=== PATIENT | female | born 1955 | race Caucasian/White ===

== ENCOUNTER 2024-01-29 16:23 | Inpatient (IN) ==
[2024-01-29] MEDS ORDERED: 0.2 MICRON FILTER SET 1 EACH IV ONE ×3 (16:35→17:49)
[2024-01-29] MEDS: AMIODARONE / D5W 150 MG/100 ML BAG IV STA ×2 (16:40→18:12)
--- NOTE | 2024-01-29 16:41 | Emergency Department Note ---
Impression & Plan Atrial flutter with rapid ventricular response, Near syncope ED Provider Note HISTORY OF PRESENT ILLNESS: Patient is a 66-year-old female presenting with a near syncopal episode. Patient is from [place] and currently in town visiting her grandson who just graduated from [employer]. She reports that she was walking up a slight hill when she felt very lightheaded like she was going to pass out. Family was able to assist her to the seat. She did not lose consciousness or hit her head. Family called 911. Patient denies any chest pain with the episode. She was found to be hypotensive and tachycardic with EMS. Blood pressures were in the low 90s systolic and heart rate was in the 130s. Her initial telemetry for EMS looked like SVT, but she did slow down to show evidence of atrial flutter. Arrival to the ER, the patient is denying any chest pain. She denies any sensation of palpitations or shortness of breath. She reports feeling back to her baseline. Denies any DVT or PE history. She is not on any anticoagulation. She only has a history of hypertension and takes a blood pressure medication. Denies any history of atrial fibrillation or flutter. ROS: as above PHYSICAL EXAM: Constitutional: Patient appears in no acute distress. HENT: Head: Normocephalic and atraumatic. Eyes: EOMI, PERRL Mouth/Throat: Mucous membranes moist. Neck: Trachea midline. Neck supple. Cardiovascular: Tachycardic with irregularly irregular rhythm. No murmurs, rubs or gallops. Intact distal pulses. Pulmonary/Chest: No respiratory distress. Breath sounds clear and equal bilaterally. No wheezes or rales. Abdominal: Abdomen soft, no tenderness, rebound or guarding. Musculoskeletal: No edema, tenderness or deformity noted. Skin: Warm and dry. No rash, erythema, pallor or cyanosis Psychiatric: Appropriate mood and affect for situation. Neurological: Alert and keenly responsive. CN II-XII grossly intact, moving all extremities equally and fully. MDM: - Vitals signs showed tachycardia. - History obtained via patient. Patient presents with near syncopal episode. Patient is in town visiting her grandson graduation. Reports she was walking up a slight hill when she felt lightheaded like she was going to pass out. Family was able to assist her to a seat and she did not fully pass out. On EMS arrival, patient was slightly hypotensive and tachycardic. On arrival to the ER, patient is denying any symptoms. Reports she feels back to her normal self. Denies any chest pain or shortness of breath. She is not on any anticoagulation. Denies any history of atrial fibrillation or atrial flutter. - Chronic conditions affecting care: Hypertension - Differential diagnoses include, but are not limited to: Electrolyte abnormality; dysrhythmia; pulmonary embolism; ACS; pneumonia; dehydration - Order placed for continuous cardiac monitoring. At this time, monitor showed rate of 134 bpm with irregular rhythm, per my interpretation. - External medical records reviewed. EMS sheet was reviewed. Patient was slightly hypotensive with a systolic blood pressure in the 90s. - EKG interpreted by myself showed atrial flutter. Rate 133 bpm. QT 294. No acute ischemic changes. - Laboratory workup interpreted by myself showed normal WBC; stable electrolytes; elevated BNP (410); normal troponin; elevated TSH (5.543) - Though patient's magnesium and potassium are normal, will replete with 1g IV magnesium and 10 mEq IV potassium - Patient given 150 mg IV bolus of amiodarone. Heart rate still remained elevated and she was started on an amiodarone drip. She was also given an additional 150 mg IV bolus of amiodarone. Given 1L NS. - Unfortunately, heart rate is still not well-controlled. Will admit to the hospitalist service. She will need anticoagulation and potentially cardioversion with cardiology in the morning. She is not cardioverted in the emergency department as unclear when her abnormal rhythm started. She is also asymptomatic with a heart rate in the 130s. - Discussion was had with director of casework services about patient's case and need for admission - Hospitalist consulted for admission - Patient admitted to [facility] hospitalist service for further evaluation and management. I have personally spent 32 minutes of critical care time in the direct management of this patient. This includes bedside care, interpretation of diagnostic studies, and testing, discussion with consultants, patient, and family members, and other required patient management activities. This 32 minutes is in excess of all separately billable procedures. ASSESSMENT AND PLAN: Diagnosis: Atrial flutter with rapid ventricular response; near syncope Plan: admit Past Med/Surg History Social History Smoking Status: Never smoker Preferred Language: Bengali Feels Safe at Home: Yes Allergies Allergies Allergy/AdvReac Type Severity Reaction Status Date / Time No Known Allergies Allergy Unverified 01/29/24 18:05 Home Meds Home Medications Medication Instructions Recorded Confirmed lisinopril 1 tab PO QAM 01/29/24 01/29/24 Results & Data (ED) Vital Signs Vital Signs - 24 hr 01/29/24 16:29 01/29/24 16:29 01/29/24 16:29 Temperature Temperature Source Pulse Rate 114 H Pulse Rate [Apical] 121 H Pulse Rhythm Irregular Pulse Rhythm [Apical] Irregular Pulse Strength [Apical] Normal Respiratory Rate 21 20 Respiratory Effort / Characteristics Non-Labored Spontaneous Respiratory Depth Normal Respiratory Pattern Regular Blood Pressure Blood Pressure [Right Arm] 96/74 L Blood Pressure Mean Blood Pressure Mean [Right Arm] 81 Blood Pressure Position Blood Pressure Position [Right Arm] Pulse Oximetry 94 94 92 Oxygen Delivery Method Room Air Room Air Room Air Oxygen Flow Rate 0 Sepsis Recent Fever Within 48 Hours Sepsis New/Unexplained Change in Mental Status Sepsis Action Taken by Nursing 01/29/24 16:30 01/29/24 16:34 01/29/24 17:08 Temperature 36.7 C Temperature Source Oral Pulse Rate 135 H 134 H Pulse Rate [Apical] 114 H Pulse Rhythm Irregular Pulse Rhythm [Apical] Irregular Pulse Strength [Apical] Normal Respiratory Rate 22 20 Respiratory Effort / Characteristics Non-Labored Spontaneous Non-Labored Spontaneous Respiratory Depth Normal Normal Respiratory Pattern Regular Regular Blood Pressure 107/89 Blood Pressure [Right Arm] 101/84 Blood Pressure Mean 95 Blood Pressure Mean [Right Arm] 89 Blood Pressure Position Lying Blood Pressure Position [Right Arm] Lying Pulse Oximetry 94 94 Oxygen Delivery Method Room Air Room Air Oxygen Flow Rate Sepsis Recent Fever Within 48 Hours No Sepsis New/Unexplained Change in Mental Status No Sepsis Action Taken by Nursing Physician Notified 01/29/24 17:30 01/29/24 17:45 01/29/24 18:00 Temperature Temperature Source Pulse Rate Pulse Rate [Apical] 112 H 139 H 128 H Pulse Rhythm Pulse Rhythm [Apical] Irregular Irregular Irregular Pulse Strength [Apical] Normal Normal Normal Respiratory Rate 21 20 23 Respiratory Effort / Characteristics Non-Labored Spontaneous Non-Labored Spontaneous Non-Labored Spontaneous Respiratory Depth Normal Normal Normal Respiratory Pattern Regular Regular Regular Blood Pressure Blood Pressure [Right Arm] 109/86 121/99 111/78 Blood Pressure Mean Blood Pressure Mean [Right Arm] 93 106 89 Blood Pressure Position Blood Pressure Position [Right Arm] Lying Lying Pulse Oximetry 95 95 95 Oxygen Delivery Method Room Air Room Air Room Air Oxygen Flow Rate Sepsis Recent Fever Within 48 Hours Sepsis New/Unexplained Change in Mental Status Sepsis Action Taken by Nursing 01/29/24 18:15 Temperature Temperature Source Pulse Rate Pulse Rate [Apical] 126 H Pulse Rhythm Pulse Rhythm [Apical] Irregular Pulse Strength [Apical] Normal Respiratory Rate 20 Respiratory Effort / Characteristics Non-Labored Spontaneous Respiratory Depth Normal Respiratory Pattern Regular Blood Pressure Blood Pressure [Right Arm] 105/82 Blood Pressure Mean Blood Pressure Mean [Right Arm] 89 Blood Pressure Position Blood Pressure Position [Right Arm] Lying Pulse Oximetry 97 Oxygen Delivery Method Room Air Oxygen Flow Rate Sepsis Recent Fever Within 48 Hours Sepsis New/Unexplained Change in Mental Status Sepsis Action Taken by Nursing Laboratory Data 01/29/24 16:37 01/29/24 16:37 Lab Results 01/29/24 01/29/24 Range/Units 16:37 17:15 WBC 10.09 (4.8-10.8) K/ul RBC 5.18 (4.20-5.40) M/uL Hgb 14.3 (12.0-16.0) g/dl Hct 44.7 (37.0-47.0) % MCV 86.3 (80.0-100.0) fL MCH 27.6 (25.0-34.0) pg MCHC 32.0 (32.0-36.0) g/dL RDW Std Deviation 46.5 H (36.4-46.3) fL RDW Coeff of Roman 14.6 H (11.5-14.5) % Plt Count 332 (130-400) K/uL MPV 9.5 (9.4-12.4) fL Immature Gran % (Auto) 0.3 % Neut % (Auto) 43.7 % Lymph % (Auto) 47.2 % Winston % (Auto) 6.7 % Eos % (Auto) 1.3 % Baso % (Auto) 0.8 % Neut # (Auto) 4.41 (1.40-6.50) K/uL Lymph # (Auto) 4.76 H (1.20-3.40) K/uL Winston # (Auto) 0.68 H (0.11-0.59) K/uL Eos # (Auto) 0.13 (0.00-0.50) K/uL Baso # (Auto) 0.08 (0.00-0.20) K/uL Immature Gran # (Auto) 0.03 (0.01-0.20) K/uL PT 11.4 (9.0-12.0) Seconds INR 1.0 (0.9-1.1) Sodium 138 (136-145) mmol/L Potassium 3.8 (3.5-5.1) mmol/L Chloride 107 (98-107) mmol/L Carbon Dioxide 25 (21-32) mmol/L Anion Gap 6 (3-11) BUN 20 (6-23) mg/dl Creatinine 0.88 (0.6-1.2) mg/dl Est Cr Clr Drug Dosing 64.7 ml/min Est GFR ( Amer) 77.7 ml/min Est GFR (Non-Af Amer) 67.0 ml/min BUN/Creatinine Ratio 22.7 H (10-20) Glucose 101 H (70-99(Fasting)) mg/dl Calcium 8.6 (8.6-10.3) mg/dl Magnesium 1.9 (1.7-2.4) mg/dl Total Bilirubin 0.5 (0.2-1.0) mg/dl AST 13 (13-39) U/L ALT 8 (7-52) U/L Alkaline Phosphatase 53 (34-104) U/L Troponin I High Sens 8.8 (0-14) pg/ml B-Natriuretic Peptide 410 H (0-100) pg/ml Total Protein 7.1 (6.0-8.3) gm/dl Albumin 3.9 (3.4-5.0) gm/dl Globulin 3.2 (2.5-4.0) gm/dl Albumin/Globulin Ratio 1.2 (0.9-2) TSH 5.543 H (0.300-4.500) uIu/ml Free T4 0.95 (0.61-1.60) ng/dl Administered Medications Amiodarone HCl/Dextrose (Nexterone / D5w) 360 mg in 200 mls @ 33.333 mls/hr IV .Q6H FELECIA Stop: 01/29/24 23:14 Last Admin: 01/29/24 17:16 Dose: 1 mg/min, 33.3 mls/hr Documented By: BRIAN Co-signed By: MARGARITA Magnesium Sulfate/Dextrose (Magnesium Sulfate / D5w) 1 gm in 100 mls @ 100 mls/hr IV NOW STA Stop: 01/29/24 18:50 Last Admin: 01/29/24 18:03 Dose: 100 mls/hr Documented By: BRIAN Potassium Chloride (K Jaiden / Wtr) 10 meq in 100 mls @ 100 mls/hr IV ONE ONE Stop: 01/29/24 18:50 Last Admin: 01/29/24 18:03 Dose: 100 mls/hr Documented By: BRIAN Discontinued Medications Amiodarone HCl/Dextrose (Nexterone / D5w) 150 mg in 100 mls @ 600 mls/hr IV NOW STA Stop: 01/29/24 16:44 Last Infusion: 01/29/24 16:51 Dose: Infused Documented By: BRIAN Co-signed By: CAROLE Admin: 01/29/24 16:40 Dose: 600 mls/hr Documented By: BRIAN Co-signed By: CAROLE Sodium Chloride (Nss) 1,000 mls @ 999 mls/hr IV .Q1H1M ONE Stop: 01/29/24 17:43 Last Infusion: 01/29/24 17:53 Dose: Infused Documented By: Admin: 01/29/24 16:52 Dose: 999 mls/hr Documented By: BRIAN Amiodarone HCl/Dextrose (Nexterone / D5w) 360 mg in 200 mls @ 16.667 mls/hr IV .Q12H FELECIA Stop: 02/28/24 16:59 Last Admin: 01/29/24 17:17 Dose: Not Given Documented By: BRIAN Amiodarone HCl/Dextrose (Nexterone / D5w) 150 mg in 100 mls @ 600 mls/hr IV NOW STA Stop: 01/29/24 17:58 Last Infusion: 01/29/24 18:23 Dose: Infused Documented By: BRIAN Co-signed By: MARGARITA Admin: 01/29/24 18:12 Dose: 600 mls/hr Documented By: BRIAN Co-signed By: MARGARITA Imaging Data Radiologist's Impression: Chest X-Ray 01/29/24 16:28 XR chest 1V portable HISTORY: 68 years-old Female syncope acute chest trauma with syncope COMPARISON: None TECHNIQUE: AP view of the chest FINDINGS: Heart is mildly enlarged. Pulmonary vascular congestion. No pneumothorax, pleural effusion or airspace consolidation. Bones appear grossly intact. IMPRESSION: Cardiomegaly with pulmonary vascular congestion. ACT 112: Negative or not required by law. The above report was generated using voice recognition software. It may contain grammatical, syntax or spelling errors. Electronically signed by: Savage Oswald M.D. 01/29/2024 4:48 PM Discharge Plan Visit Data Chief Complaint: Syncope Stated Complaint: SYNCOPE, TACHYCARDIA ED Provider: Charlotte Maxwell Discharge Problem: Atrial flutter with rapid ventricular response, Near syncope Forms Stand Alone Forms: SOLEM [employer] Prescriptions Prescriptions: No Action lisinopril 1 tab PO QAM Rx Instructions: PT DOESNT KNOW STRENGTH..GETS MEDICATION IN [place] Referrals Referrals: PCP,NO [Primary Care Provider] -
[2024-01-29 16:42] LABS: Basophils # (auto) 0.08 K/uL (0.00-0.20); Basophils % (auto) 0.8 %; Eosinophils # (auto) 0.13 K/uL (0.00-0.50); Eosinophils % (auto) 1.3 %; Hematocrit (blood only) 44.7 % (37.0-47.0); Hemoglobin 14.3 g/dl (12.0-16.0); Immature Granulocytes # (auto) 0.03 K/uL (0.01-0.20); Immature Granulocytes % (auto) 0.3 %; Lymphocytes # (auto) 4.76 K/uL (1.20-3.40); Lymphocytes % (auto) 47.2 %; Mean Corpuscular Hemoglobin 27.6 pg (25.0-34.0); Mean Corpuscular Volume 86.3 fL (80.0-100.0); Mean Platelet Volume 9.5 fL (9.4-12.4); Monocytes # (auto) 0.68 K/uL (0.11-0.59); Monocytes % (auto) 6.7 %; Neutrophils # (auto) 4.41 K/uL (1.40-6.50); Neutrophils % (auto) 43.7 %; Platelet Count 332 K/uL (130-400); RDW Coefficient of Variation 14.6 % (11.5-14.5); RDW Standard Deviation 46.5 fL (36.4-46.3); Red Blood Count 5.18 M/uL (4.20-5.40); White Blood Count 10.09 K/ul (4.8-10.8)
--- NOTE | 2024-01-29 16:50 | XRay Report ---
XR chest 1V portable HISTORY: 68 years-old Female syncope acute chest trauma with syncope COMPARISON: None TECHNIQUE: AP view of the chest FINDINGS: Heart is mildly enlarged. Pulmonary vascular congestion. No pneumothorax, pleural effusion or airspac e consolidation. Bones appear grossly intact. IMPRESSION: Cardiomegaly with pulmonary vascular congestion. ACT 112: Negative or not required by law. The above report was generated using voice recognition software. It may contain grammatical, syntax o r spelling errors. Electronically signed by: Savage Oswald M.D. 01/29/2024 4:48 PM
[2024-01-29 16:51] LABS: Prothrombin Time 11.4 Seconds (9.0-12.0)
[2024-01-29] MEDS: SODIUM CHLORIDE 0.9% 1,000 ML IV ONE (16:52)
[2024-01-29 16:56] LABS: Albumin Level 3.9 gm/dl (3.4-5.0); Bilirubin,Total 0.5 mg/dl (0.2-1.0); Calcium 8.6 mg/dl (8.6-10.3); Magnesium 1.9 mg/dl (1.7-2.4); Potassium 3.8 mmol/L (3.5-5.1)
[2024-01-29 17:01] LABS: Albumin Globulin Ratio 1.2 (0.9-2); BUN Creatinine Ratio 22.7 (10-20); Creatinine Clr Calc Pharmacy 64.7 ml/min; Est GFR (African American) 77.7 ml/min; Globulin 3.2 gm/dl (2.5-4.0); Total Protein 7.1 gm/dl (6.0-8.3)
[2024-01-29] MEDS: AMIODARONE / D5W 360 MG/200 ML BAG IV SCH ×3 (17:05→22:25)
[2024-01-29 17:08] LABS: Troponin I High Sensitivity 8.8 pg/ml (0-14)
[2024-01-29 17:17] LABS: Thyroid Stimulating Hormone 5.543 uIu/ml (0.300-4.500)
[2024-01-29 17:49] LABS: T4 Free Thyroxine 0.95 ng/dl (0.61-1.60)
[2024-01-29] MEDS: MAGNESIUM SULFATE / D5W 1 GM/100 ML BAG IV STA (18:03)
[2024-01-29] MEDS: POTASSIUM CHLORIDE / WTR 10 MEQ/100 ML PLCT IV ONE (18:03)
--- NOTE | 2024-01-29 18:56 | History & Physical Report ---
Date of Service January 29, 2024 Assessment & Plan (1) Near syncope: (2) Atrial flutter with rapid ventricular response: Plan: This is a 68-year-old female visiting from [place] with past medical history of hypertension who presents after near syncopal episode earlier this afternoon was found to have new onset A-fib with RVR. Episode of lightheadedness, diaphoresis, SOB this afternoon, no previous history of known arrhythmias EKG with atrial flutter with RVR with HR in 130s Received 150mg IV bolus of amiodarone x2 in the ED and was started on an amiodarone drip of 1 mg/min for the past hour with heart rate remaining in the 130s Discussed case with Dr. Argueta, who recommends continuing amiodarone drip, adding d-dimer due to recent flight for PE eval Anticoagulating with IV heparin CM consult to assess with Cici monzon given patient is traveling i nternationally Mag and K repleted in ED, will recheck in AM, TSH slightly elevated at 5 but free T4 wnl NPO @ MN in case of cardioversion in AM (3) HTN (hypertension): Plan: Hold lisinopril for now while BP lower end of normal DVT Ppx: IV heparin as above Code status: FULL PCP: Visiting from [place] Dispo: Admitted to PCU Patient seen in collaboration with Dr. Bryson. Please see addendum. I spent a total of 75 minutes coordinating, documenting, and providing care for this patient excluding time spent in the performance of separately billed services. History of Present Illness Chief Complaint: Near syncope Primary Care Provider: NO PCP This is a 68-year-old female visiting from [place] with past medical history of hypertension who presents after near syncopal episode earlier this afternoon. Patient is here visiting her grandson during his [employer] graduation. They were walking to lunch when she started to feel lightheaded with associated shortness of breath and diaphoresis but was able to sit down at the [place] without passing out. Family called EMS and was found to be hypotensive with systolic BP in the 90s with heart rate in the 130s. EKG on arrival consistent with atrial flutter with RVR in the 130s. Received 150mg IV bolus of amiodarone x2 in the ED and has been on an amiodarone drip of 1 mg/min for the past hour with heart rate antonia ining in the 130s. Currently feels fatigued but denies any lightheadedness, headache, chest pain or palpitations. No nausea, vomiting, abdominal pain, dysuria, diarrhea or constipation. Denies any history of known heart arrhythmias, AR or PE. Allergies Allergy/AdvReac Type Severity Reaction Status Date / Time No Known Allergies Allergy Unverified 01/29/24 18:05 Home Medications Medication Instructions Recorded Confirmed Type lisinopril 1 tab PO QAM 01/29/24 01/29/24 History Past Med/Surg History Medical History (Updated 01/29/24 @ 18:51 by Ny Parnell PA-C) HTN (hypertension) Surgical History (Updated 01/29/24 @ 18:51 by Ny Parnell PA-C) No pertinent past surgical history Family History (Updated 01/29/24 @ 18:51 by Ny Parnell PA-C) Denies family history of Diabetes Heart disease Stroke Social History Smoking Status: Never smoker Second Hand Exposure: No; Do You Dip or Chew Tobacco: No; Tobacco Cessation Education Requested by Patient: No Hx Alcohol Use: No Hx Substance Use: No Preferred Language: Dominican Communication Ability: Effective Senior Client Advisor Required: No Beliefs That Will Affect Care: None Current Living Situation: Spouse Other Information That Helps Us Care for You: No Feels Safe at Home: Yes Safety Concerns: Feels Safe At This Time Assistive Devices: Denture - Upper Review of Systems Review of Systems: At least ten systems reviewed and negative except as noted in the HPI. Physical Exam Physical Exam: General Appearance: WD/WN, vitals as above, NAD, sitting up in bed, pleasant, conversing easily Head: normocephalic, atraumatic Eyes: normal inspection, PERRL, conjunctivae normal, anicteric sclerae ENT: external ear and nose normal, oropharynx normal Neck: normal visual inspection, trachea midline, no thyromegaly Respiratory: normal respiratory effort, diminished breath sounds bilaterally, no wheeze, rales, rhonchi. No accessory muscle use Cardiovascular: tachycardic rate regular rhythm, no murmur, normal peripheral pulses, no BLE edema. Vessels: no JVD Chest: normal inspection of chest Abdomen/GI: normal bowel sounds, soft, nontender, no hepatosplenomegaly Extremities/Musculoskeletal: no cyanosis or clubbing, extremities motor strength 5/5 Neurologic: PERRL, EOMI, accommodation nl, no face palsy, no dysarthria, CN's II-XI intact bilaterally and moves all extremities Psychiatric: A+Ox3, euthymic affect Skin: no rashes, normal color, warm/dry Results & Data Results & Data Vital Signs (Past 12 Hours) Vital Signs Temp Pulse Pulse Resp BP BP Pulse Ox 01/29/24 18:15 131 H 21 108/89 94 01/29/24 18:15 126 H 20 105/82 97 01/29/24 18:00 128 H 23 111/78 95 01/29/24 17:45 139 H 20 121/99 95 01/29/24 17:30 112 H 21 109/86 95 01/29/24 17:08 114 H 20 101/84 94 01/29/24 16:34 36.7 C 134 H 22 107/89 94 01/29/24 16:30 135 H 01/29/24 16:29 121 H 20 96/74 L 92 01/29/24 16:29 114 H 21 94 01/29/24 16:29 94 O2 Del Method O2 Flow Rate 01/29/24 18:15 Room Air 01/29/24 18:15 Room Air 01/29/24 18:00 Room Air 01/29/24 17:45 Room Air 01/29/24 17:30 Room Air 01/29/24 17:08 Room Air 01/29/24 16:34 Room Air 01/29/24 16:30 01/29/24 16:29 Room Air 01/29/24 16:29 Room Air 01/29/24 16:29 Room Air 0 Laboratory Results Short CBC 01/29/24 Range/Units 16:37 WBC 10.09 (4.8-10.8) K/ul Hgb 14.3 (12.0-16.0) g/dl Hct 44.7 (37.0-47.0) % Plt Count 332 (130-400) K/uL BMP 01/29/24 16:37 Sodium 138 Potassium 3.8 Chloride 107 Carbon Dioxide 25 BUN 20 Creatinine 0.88 Glucose 101 H Calcium 8.6 Liver Function 01/29/24 Range/Units 16:37 Total Bilirubin 0.5 (0.2-1.0) mg/dl AST 13 (13-39) U/L ALT 8 (7-52) U/L Alkaline Phosphatase 53 (34-104) U/L Albumin 3.9 (3.4-5.0) gm/dl Diagnostic Findings Chest X-Ray 01/29/24 16:28 XR chest 1V portable HISTORY: 68 years-old Female syncope acute chest trauma with syncope COMPARISON: None TECHNIQUE: AP view of the chest FINDINGS: Heart is mildly enlarged. Pulmonary vascular congestion. No pneumothorax, pleural effusion or airspace consolidation. Bones appear grossly intact. IMPRESSION: Cardiomegaly with pulmonary vascular congestion. ACT 112: Negative or not required by law. The above report was generated using voice recognition software. It may contain grammatical, syntax or spelling errors. Electronically signed by: Savage Oswald M.D. 01/29/2024 4:48 PM ECG Additional Comments: EKG reviewed with a flutter with RVR rate in 130s Code Status & VTE Plan VTE Prophylaxis Plan VTE Prophylaxis will be ordered: Yes Supervising Physician Co-Signing Physician Notes Pt seen and examined by myself, Irene Bryson MD on the day of service. Care was coordinated with Ny Parnell PA-C. 68yoF with PMHx significant for HTN presenting with near syncopal episode and dyspnea on exertion. Hx obtained from pt and daughter in the room. Pt states that she is visiting from [place]. Has no cardiac Hx, has never had anything like this happen before. Notes a dx of only HTN. At the time of exam, denied current symptoms of chest pain, palpitations, BELLA, N/V. Rhythm of atrial flutter with RVR hs-trop wnl BNP elevated at 410 Chest XRAY with noted cardiomegaly with pulmonary vascular congestion d-dimer elevated, CTA chest ordered hypotensive on presentation to the ED, HR as high as the 130s. On exam, AAOx3, no acute distress laying in bed. Irregular HR, breath sounds clear, no noted pedal edema. Started on amiodarone by the ED, IV heparin for anticoagulation, per risk consulting treasury director continue with IV amiodarone at this time. At time of signout to geriatric nurse practitioner, HR in one-teens. Echo pending. Consider trending trops x3 CTA chest pending NPO at midnight. Telemetry monitoring. UA suggestive of infection, urine Cx pending. IV Rocephin, tailor/discontinue based on Cx results. Otherwise as above. I spent a total [id number] coordinating, documenting, and providing care for this patient excluding time spent in the performance of separately billed services
[2024-01-29 19:22] LABS: Appearance Urine Cloudy (Clear); Bacteria Urine Automated 4+ (Negative); Bilirubin Urine Negative (Negative); Blood Urine Trace (Negative); Color Urine Yellow; Epithelial Cell Urine Auto >30 /lpf (0-5); Glucose Urine UA Negative (Negative); Ketones Urine Negative (Negative); Leukocyte Esterase Urine 3+ (Negative); Nitrite Urine Negative (Negative); Protein Urine Trace (Negative); RBC Urine Automated 0-4 /hpf (0-4); Specific Gravity Urine 1.015 (1.000-1.030); Urobilinogen Urine Negative (Negative); WBC Urine Automated >30 /hpf (0-5)
[2024-01-29] MEDS: HEPARIN SOD (PORCINE) 1000 UNIT/ML IV ONE (19:29)
[2024-01-29] MEDS: HEPARIN SODIUM/DEXTROSE 25,000 UNITS/500 ML BAG IV SCH (19:30)
[2024-01-29 19:32] LABS: Partial Thromboplastin Ratio 0.9; Partial Thromboplastin Time 25 Seconds (21-31)
[2024-01-29] MEDS: Heparin IV Adult Wt-Based Low-Dose w/ INITIAL Bolus Protocol IV STA (19:36)
[2024-01-29 19:38] LABS: D Dimer 1620 ug/L FEU (0-500)
[2024-01-29] MEDS ORDERED: ACETAMINOPHEN 325 MG TAB PO PRN (20:39)
[2024-01-29] MEDS ORDERED: POLYETHYLENE (MIRALAX) 17 GM PACK PO PRN (20:39)
[2024-01-29] MEDS ORDERED: ONDANSETRON INJ 2 MG/ML 2 ML VIAL IV PRN (20:39)
[2024-01-29] MEDS: OPTIRAY 320 125ml IV ONE (22:16)
--- NOTE | 2024-01-29 22:34 | CT Scan Report ---
Exam(s): CTA CHEST IV Amt: OPTIRAY [id number] EXAM: CT Angiography Chest With Intravenous Contrast CLINICAL HISTORY: Reason for exam: PE. TECHNIQUE: Axial computed tomographic angiography images of the chest with intravenous contrast. CTDI is 36.5 mGy and DLP is 846.38 mGy-cm. Automated exposure control was utilized for the study. A dose lowering technique was utilized adhering to the principles of ALARA. MIP reconstructed images were created and reviewed. COMPARISON: No relevant prior studies available. FINDINGS: Pulmonary arteries: Unremarkable. No acute pulmonary embolism. Aorta: No acute findings. No thoracic aortic aneurysm. Lungs: Unremarkable. No mass. No consolidation. Pleural space: Unremarkable. No significant effusion. No pneumothorax. Heart: Unremarkable. No cardiomegaly. No significant pericardial effusion. No evidence of RV dysfunction. Mediastinum: Moderate hiatal hernia. Bones/joints: No acute fracture. No dislocation. Soft tissues: Unremarkable. Lymph nodes: Unremarkable. No enlarged lymph nodes. IMPRESSION: 1. No acute pulmonary embolism. 2. Moderate hiatal hernia. Electronically signed by: Abe Mcnally MD 01/29/24 22:33 PM
[2024-01-30 02:04] LABS: Hematocrit (blood only) 41.6 % (37.0-47.0); Hemoglobin 13.8 g/dl (12.0-16.0); Mean Corpuscular Hemoglobin 27.8 pg (25.0-34.0); Mean Corpuscular Hgb Conc 33.2 g/dL (32.0-36.0); Mean Corpuscular Volume 83.7 fL (80.0-100.0); Mean Platelet Volume 9.6 fL (9.4-12.4); Platelet Count 324 K/uL (130-400); RDW Coefficient of Variation 14.9 % (11.5-14.5); Red Blood Count 4.97 M/uL (4.20-5.40); White Blood Count 8.82 K/ul (4.8-10.8)
[2024-01-30 02:15] LABS: BUN Creatinine Ratio 19.8 (10-20); Calcium 8.7 mg/dl (8.6-10.3); Creatinine Clr Calc Pharmacy 71.6 ml/min; Est GFR (African American) 85.9 ml/min; Est GFR (Non-African American) 74.1 ml/min; Magnesium 2.2 mg/dl (1.7-2.4)
[2024-01-30 02:23] LABS: ANTI-Xa, UFH(UnfractionatedHep 0.38 IU/ml (0.3-0.7)
[2024-01-30] MEDS: cefTRIAXone SODIUM 2,000 MG in DEXTROSE 5 % MINI-B 50 ML IV SCH (05:53)
--- NOTE | 2024-01-30 08:05 | Electrocardiogram Report ---
Test Reason : Blood Pressure : / mmHG Vent. 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
--- NOTE | 2024-01-30 08:20 | Electrocardiogram Report ---
Test Reason : Blood Pressure : / mmHG Vent. Rate : 133 BPM Atrial Rate : 300 BPM P-R Int : 000 ms QRS Dur : 068 ms QT Int : 294 ms P-R-T Axes : 000 -11 -83 degrees QTc Int : 437 ms Atrial flutter with variable A-V block Poor R wave progression, consider anterior UT vs. lead placement vs. LVH Abnormal ECG No previous ECGs available Confirmed by Vinay Hansen ([id number]) on 01/30/2024 8:19:49 AM Referred By: REFERRED SELF Confirmed By:Vinay Hansen
--- NOTE | 2024-01-30 08:35 | Cardiology Consultation ---
Date of Consultation January 30, 2024 Assessment & Plan (1) Atrial flutter with rapid ventricular response: (2) Heart failure with reduced ejection fraction: Plan Patient admitted with symptoms of SOB, diaphoresis, near syncope after walking up an incline. Diagnosed with atrial flutter RVR. Duration unknown, but possibly months as patient admits to worsening SOB for 5-6 months. LVEF found to be reduced at 20-25% with severe global hypokinesis, likely tachyinduced. HS troponin negative on admission. Started on IV heparin and IV amiodarone on admission. Add metoprolol succinate 25 mg daily. As BP allows, likely resume lisinopril, possibly lower dose. Currently patient appears euvolemic. No indication for diuretic therapy. Chest CTA was without evidence of PE. Lungs clear. Patient originally to fly back to [place] tomorrow. Recommend delaying flight at this time. Plan for probable HODAN/CV tomorrow Will need anticoagulation upon discharge as well. Patient will need close follow up upon returning to [place] and will likely need transitioned to GDMT that will be available to her. Case discussed with Dr. Raymundo Miller spent a total of 60 minutes on the date of service in preparation, delivery, and documentation of the care provided to this patient, excluding any time spent in the performance of separately billed services. Lima Marshall PA-C Department of Cardiology, [facility] This chart was completed in part utilizing Speech Voice Recognition Software. Grammatical errors, random word insertions, pronoun errors, and incomplete sentences are an occasional consequence of this system due to software limitations, ambient noise, and hardware issues. Any formal questions or concerns about the content, text, or information contained within the body of this dictation should be directly addressed to the provider for clarification. Supervising Physician Co-Signing Physician Notes Patient was seen and personally examined. Assessment and plan as outlined above. Agree with all recommendations. Patient is a 68-year-old female visiting from [place] with several days history of increased exertional dyspnea, near syncope after walking up incline. On ER presentation found to be in atrial flutter with rapid ventricular response. Begun on IV heparin and IV amiodarone with minimal change in heart rate Denies chest pain or anginal symptoms, recent fevers chills or infections. Notes no signs or symptoms of congestive heart failure weight gain or edema. Echocardiogram demonstrates diffuse hypokinesis question secondary to persistent tachyarrhythmia Exam: No jugular venous distention lungs clear cardiovascular exam irregular irregular with rapid response. No edema Impression: 1. Atrial flutter with rapid ventriclular response: Continue IV amiodarone, add metoprolol succinate dose today. Continue anticoagulation with IV heparin plan to transition to Eliquis Arrangements made tentatively for synchronized electrical cardioversion and HODAN guided in a.m. N.p.o. after mid night 2. 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 Fonseca History of Present Illness Patient is a 68 year old female who is visiting the area from [place], was admitted to [facility] yesterday after a near syncopal spell with SOB after walking up a hill. EMS was summoned and found to be tachycardic and hypotensive. EKG revealed atrial flutter with RVR. She was admitted to [facility]. Elevated D.Dimer noted. She underwent Chest CTA to rule out PE which was negative. HS troponin was negative x1. manager call center cardiology provider, Dr. Argueta, notified and recommended IV amiodarone load. She was started on anticoagulation with IV heparin. No prior cardiovascular history. She is treated for hypertension with possibly lisinopril (patient does not recall name of medication, but starts with "L" and is 10 mg). Due to being hypotensive on arrival, antihypertensives held on admission. Patient reports she is here for grandson's graduation from [employer]. She is to fly home tomorrow. She is here with 2 daughters, also from [place]. She reports worsening SOB with activities particularly over the last 5-6 months. No exertional chest pain. No sense of palpitations or tachypalpitations yesterday. SOB was acutely worse yesterday when trying to climb a slight incline. Today, patient resting at side of bed, eating breakfast. She reports feeling "well". She has no subjective complaints. SOB is at baseline. She denies orthopnea, PND or edema. No cough. BP improved. HR remains elevated in the 120- 130's. No history of Gl bleeding or anemia. Allergies Allergy/AdvReac Type Severity Reaction Status Date / Time No Known Allergies Allergy Unverified 01/29/24 18:05 Home Medications Medication Instructions Recorded Confirmed Type lisinopril 1 tab PO QAM 01/29/24 01/29/24 History Patient History Medical History (Updated 01/30/24 @ 11:00 by Lima Marshall PA-C) HTN (hypertension) Surgical History (Updated 01/29/24 @ 18:51 by Ny Parnell PA-C) No pertinent past surgical history Family History (Updated 01/29/24 @ 18:51 by Ny Parnell PA-C) Denies family history of Diabetes Heart disease Stroke Social History Smoking Status: Never smoker Second Hand Exposure: No; Do You Dip or Chew Tobacco: No; Tobacco Cessation Education Requested by Patient: No Hx Alcohol Use: No Hx Substance Use: No Preferred Language: Qatari Communication Ability: Effective Flight Control Specialist Required: No Beliefs That Will Affect Care: None Current Living Situation: Spouse Other Information That Helps Us Care for You: No Feels Safe at Home: Yes Safety Concerns: Feels Safe At This Time Assistive Devices: Denture - Upper Review of Systems Review of Systems: All systems reviewed & are unremarkable except as noted in HPI & below Physical Exam Constitutional: WD/WN, vitals as above well developed; no acute distress Neck: trachea midline, no thyromegaly Respiratory: normal respiratory effort; no labored breathing Auscultation: lungs clear to auscultation bilaterally; no crackles, no rales and no rhonchi Cardiovascular: Rate/Rhythm: + tachycardic Heart Sounds: no murmur Vessels: no JVD Extremities: no edema Musculoskeletal: no cyanosis or clubbing, extremities motor strength 5/5 Neurologic: PERRL, EOMI, accommodation nl, no face palsy, no dysarthria Results & Data Vital Signs (Past 12 Hours) Vital Signs Temp Pulse Pulse Resp BP Pulse Ox O2 Del Method 01/30/24 08:16 36.5 C 97 H 20 128/79 95 Room Air 01/30/24 03:04 36.5 C 102 H 16 131/88 94 Room Air 01/29/24 23:00 117 H 01/29/24 22:57 36.6 C 110 H 16 121/94 94 Room Air 01/29/24 22:00 131 H 01/29/24 21:09 92 H 01/29/24 21:03 36.5 C 133 H 17 120/78 95 Room Air 01/29/24 21:00 Room Air 01/29/24 20:50 132 H Laboratory Results Cardiac Enzymes 01/29/24 01/29/24 Range/Units 16:37 17:15 AST 13 (13-39) U/L Troponin I High Sens 8.8 (0-14) pg/ml B-Natriuretic Peptide 410 H (0-100) pg/ml Coagulation 01/29/24 01/29/24 Range/Units 16:37 17:15 PT 11.4 (9.0-12.0) Seconds APTT 25 (21-31) Seconds B-Natriuretic Peptide 410 H (0-100) pg/ml CBC 01/29/24 01/30/24 Range/Units 16:37 01:46 WBC 10.09 8.82 (4.8-10.8) K/ul RBC 5.18 4.97 (4.20-5.40) M/uL Hgb 14.3 13.8 (12.0-16.0) g/dl Hct 44.7 41.6 (37.0-47.0) % Plt Count 332 324 (130-400) K/uL Neut # (Auto) 4.41 (1.40-6.50) K/uL Lymph # (Auto) 4.76 H (1.20-3.40) K/uL Early # (Auto) 0.68 H (0.11-0.59) K/uL Eos # (Auto) 0.13 (0.00-0.50) K/uL Baso # (Auto) 0.08 (0.00-0.20) K/uL Comprehensive Metabolic Panel 01/29/24 01/30/24 Range/Units 16:37 01:46 Sodium 138 135 L (136-145) mmol/L Potassium 3.8 4.0 (3.5-5.1) mmol/L Chloride 107 107 (98-107) mmol/L Carbon Dioxide 25 22 (21-32) mmol/L BUN 20 16 (6-23) mg/dl Creatinine 0.88 0.81 (0.6-1.2) mg/dl Glucose 101 H 93 (70-99(Fasting)) mg/dl Calcium 8.6 8.7 (8.6-10.3) mg/dl AST 13 (13-39) U/L ALT 8 (7-52) U/L Alkaline Phosphatase 53 (34-104) U/L Total Protein 7.1 (6.0-8.3) gm/dl Albumin 3.9 (3.4-5.0) gm/dl Intake and Output 01/29/24 01/30/24 01/30/24 22:59 06:59 14:59 Intake Total 2049 Output Total 401 / 401 350 / 350 Balance 2049 / 1698 -351 / 1698 -350 / -350 Intake: IV 1999 Amiodarone / D5w 150 mg In 100 200 / 200 ml @ 600 mls/hr IV NOW STA Rx#: [id number] Amiodarone / D5w 360 mg In 200 200 / 200 ml @ 1 MG/MIN 33.333 mls/hr IV .Q6H [facility] Rx#:[id number] Magnesium Sulfate / D5w 1 gm In 100 / 100 100 ml @ 100 mls/hr IV NOW STA Rx#:[id number] Potassium Chloride / Wtr 10 meq 100 / 100 In 100 ml @ 100 mls/hr IV ONE ONE Rx#:[id number] Sodium Chloride 0.9% 1,000 ml @ 1000 / 1000 999 mls/hr IV .Q1H1M ONE Rx#: [id number] cefTRIAXone SODIUM 2,000 mg In 50 / 50 Dextrose 5 % Mini-B 50 ml @ 100 mls/hr IV Q24H [facility] Rx#: [id number] Left Antecubital 400 / 400 Oral 50 / 50 0 / 50 Output: Urine 400 / 400 350 / 350 # Bowel Movements / Other: # Unmeasured Voids 0 Weight 87.6 kg 87.4 kg Weight Measurement Method Standing Scale Built in [facility] Diagnostic Findings Telemetry reviewed: Atrial flutter with variable AV block. Ventricular rates ranging 120-130s. EKG reviewed from arrival 01/29/24: Atrial flutter with variable AV block, ventricular rates in the 130's poor R wave progression vs septal infarct. T wave inversions in inferior/lateral leads, but also may be flutter waves Repeat EKG reviewed from 01/30/24: Atrial flutter with RVR, ventricular rates in the 120's T wave abnormality in V5-V6. Echo reviewed, completed 01/30/24: LV is normal in size Severe global hypokinesis of the LV EF 20-25% LA is moderately dilated Trace MR Mild TR No pulm hypertension Chest CTA reviewed from 01/29/24: FINDINGS: Pulmonary arteries: Unremarkable. No acute pulmonary embolism. Aorta: No acute findings. No thoracic aortic aneurysm. Lungs: Unremarkable. No mass. No consolidation. Pleural space: Unremarkable. No significant effusion. No pneumothorax. Heart: Unremarkable. No cardiomegaly. No significant pericardial effusion. No evidence of RV dysfunction. Mediastinum: Moderate hiatal hernia. Bones/joints: No acute fracture. No dislocation. Soft tissues: Unremarkable. Lymph nodes: Unremarkable. No enlarged lymph nodes. IMPRESSION: 1. No acute pulmonary embolism. 2. Moderate hiatal hernia Chest xray report reviewed dated 01/30/24: IMPRESSION: Cardiomegaly with pulmonary vascular congestion. Medications Administered Current Inpatient Medications Acetaminophen (Acetaminophen 325 Mg Tab) 650 mg PO Q4H PRN PRN Reason: Pain or Fever Stop: 02/28/24 20:38 Amiodarone HCl/Dextrose (Nexterone / D5w) 360 mg in 200 mls @ 16.667 mls/hr IV .Q12H [facility] Stop: 02/28/24 23:14 Last Admin: 01/29/24 22:25 Dose: 0.5 mg/min, 16.7 mls/hr Heparin Sodium/Dextrose (Heparin Sodium/Dextrose) 25,000 units in 500 mls @ 16 mls/hr IV .Q24H [facility]; Protocol Stop: 02/28/24 19:29 Last Admin: 01/29/24 19:30 Dose: 800 units/hr, 16 mls/hr Ceftriaxone Sodium 2,000 mg/ (Dextrose) 50 mls @ 100 mls/hr IV Q24H [facility]; Protocol Stop: 02/09/24 05:59 Last Infusion: 01/30/24 06:44 Dose: Infused Ondansetron HCl (Ondansetron Inj 2 Mg/Ml 2 Ml Vial) 4 mg IV Q6H PRN PRN Reason: Nausea Stop: 02/28/24 20:38 Polyethylene Glycol (Polyethylene (Miralax) 17 Gm Pack) 17 gm PO DAILY PRN PRN Reason: Constipation Stop: 02/28/24 20:38
[2024-01-30] MEDS: METOPROLOL SUCC 25MG EXT REL TAB PO SCH (12:25)
--- NOTE | 2024-01-30 14:35 | Hospitalist Progress Note ---
Date of Service January 30, 2024 Assessment & Plan (1) Near syncope: (2) Atrial flutter with rapid ventricular response: (3) Heart failure with reduced ejection fraction: Plan: Patient is a 68-year-old female visiting from [place] with past medical history of hypertension who presents after near syncopal episode and was found to have new onset A-fib with RVR. EKG on admission personally reviewed; a flutter with variable AV block No leukocytosis BNP elevated to 410 CTA chest on admission personally reviewed; no PE. Moderate hiatal hernia Echocardiogram shows reduced EF of 20 to 25% Patient was started on amiodarone in the ED; cardiology evaluated the patient; recommended to continue for now On anticoagulation with heparin Plan to do HODAN with cardioversion tomorrow AM. N.p.o. from midnight Monitor on telemetry (4) HTN (hypertension): Plan: Hold lisinopril for now while BP lower end of normal Possible UTI Urinalysis suggestive for infection Urine culture growing gram-negative Continue on ceftriaxone; follow-up on culture results Subclinical hypothyroidism TSH mildly elevated, free T4 within normal limits Continue to monitor DVT Ppx: IV heparin Code status: FULL PCP: Visiting from [place] Dispo: Admitted to PCU Discussed with patient's daughter at bedside. Answered questions/queries Time spent evaluating patient, direct bedside care, chart review, placing orders, interpretation of diagnostic studies, discussion with consultants, patient, and family members, as well as other required patient management activities is 50 minutes Please note the above document was generated using voice recognition software. It may contain grammatical, syntax or spelling errors. Any formal questions or concerns about the content, text or information contained within the body of this dictation should be directly addressed to the provider for clarification Admission and Anticipated Discharge Date Admission Date: January 29, 2024 Subjective Patient is lying flat on the bed; not in distress. She denies any chest pain, shortness of breath or palpitations. Telemetry shows atrial flutter with ventricular rate of 110s to 120s Review of Systems Review of Systems: All systems reviewed & are unremarkable except as noted in Subjective Physical Exam Physical Exam: Constitutional: Comfortable; not in distress. Respiratory: normal respiratory effort, lungs clear to auscultation, no wheeze, rales, rhonchi. Normal insp/exp effort, no accessory muscle use Cardiovascular: Irregular, no murmur, no edema Vessels: no JVD or carotid bruit Chest: normal inspection of chest Abdomen: normal bowel sounds, soft, nontender, no hepatosplenomegaly Musculoskeletal: no cyanosis or clubbing, extremities motor strength 5/5 Skin: no rashes, warm and dry normal turgor Neurologic: PERRL, EOMI, accommodation nl, no face palsy, no dysarthria CN's II- XI intact bilaterally and moves all extremities Psychiatric: A+Ox3, euthymic affect Results & Data Results & Data Vital Signs (Past 12 Hours) Vital Signs Temp Pulse Resp BP Pulse Ox O2 Del Method 01/30/24 11:00 36.5 C 88 18 135/64 96 Room Air 01/30/24 08:16 36.5 C 97 H 20 128/79 95 Room Air 01/30/24 03:04 36.5 C 102 H 16 131/88 94 Room Air (4) HTN (hypertension) Hypertension type: primary hypertension Qualified Code(s): I10 - Essential (primary) hypertension
--- NOTE | 2024-01-30 15:40 | Anesthesiology Consultation ---
Date of Service January 30, 2024 Assessment & Plan (1) Encounter for pre-operative examination: Chart Review Chart Review: Acceptable Risk for Surgery History Surgery Operation Date: 01/31/24 07:30 Proposed Procedures p Transesophageal Echo w/Anesthesia - Bayron Fonseca MD s Cardioversion Broom Builder w/Anesthesia - Bayron Fonseca MD Height/Weight Height: 5 ft 5 in Weight: 87.4 kg Allergies Allergy/AdvReac Type Severity Reaction Status Date / Time No Known Allergies Allergy Unverified 01/29/24 18:05 Medications Home Medications Medication Instructions Recorded Confirmed Last Taken lisinopril 1 tab PO QAM 01/29/24 01/29/24 01/29/24 Active Medications Generic Name Dose Route Start Last Admin Trade Name Freq PRN Reason Stop Dose Admin Amiodarone HCl/Dextrose 360 mg in 200 mls @ 16.667 mls/hr 01/29/24 23:15 01/30/24 10:02 Nexterone / D5w IV 02/28/24 23:14 0.5 mg/min .Q12H [facility] 16.7 mls/hr Administration 0.5 MG/MIN Heparin Sodium/Dextrose 25,000 units in 500 mls @ 16 mls/hr 01/29/24 19:30 01/29/24 19:30 Heparin Sodium/Dextrose IV 02/28/24 19:29 800 units/hr .Q24H [facility] 16 mls/hr Administration Protocol 800 UNITS/HR Ceftriaxone Sodium 2,000 mg/ 50 mls @ 100 mls/hr 01/30/24 06:00 01/30/24 06:44 Dextrose IV 02/09/24 05:59 Infused Q24H [facility] Infusion Protocol Metoprolol Succinate 25 mg 01/30/24 11:15 01/30/24 12:25 Metoprolol Succ 25mg Ext Rel Tab PO 02/29/24 11:14 25 mg QAM [facility] Administration Past Medical History Medical History (Updated 01/30/24 @ 15:40 by Yefri Kumar MD) Heart failure with reduced ejection fraction Atrial flutter with rapid ventricular response HTN (hypertension) Past Family History Family History Denies family history of Diabetes Heart disease Stroke Past Surgical History Surgical History No pertinent past surgical history Social History Smoking Status: Never smoker Do You Dip or Chew Tobacco: No Hx Alcohol Use: No Hx Substance Use: No Physical Exam Vital Signs Last Vital Signs Temp 36.5 C 01/30/24 11:00 Pulse 88 01/30/24 11:00 Resp 18 01/30/24 11:00 BP 135/64 01/30/24 11:00 Pulse Ox 96 01/30/24 11:00 O2 Del Method Room Air 01/30/24 11:00 O2 Flow Rate 0 01/29/24 16:29 Testing Laboratory Results 01/30/24 01:46 01/30/24 01:46 PT 11.4 Seconds (9.0-12.0) 01/29/24 16:37 INR 1.0 (0.9-1.1) 01/29/24 16:37 APTT 25 Seconds (21-31) 01/29/24 16:37 Urine Color Yellow 01/29/24 19:08 Urine Appearance Cloudy (Clear) A 01/29/24 19:08 Urine pH 6.0 (4.5-7.5) 01/29/24 19:08 Ur Specific [place] 1.015 (1.000-1.030) 01/29/24 19:08 Urine Protein Trace (Negative) H 01/29/24 19:08 Urine Glucose (UA) Negative (Negative) 01/29/24 19:08 Urine Ketones Negative (Negative) 01/29/24 19:08 Urine Nitrite Negative (Negative) 01/29/24 19:08 Ur Leukocyte Esterase 3+ (Negative) H 01/29/24 19:08 Urine WBC (Auto) >30 /hpf (0-5) H 01/29/24 19:08 Urine RBC (Auto) 0-4 /hpf (0-4) 01/29/24 19:08 U Hyaline Cast (Auto) 1-5 /lpf (0-5) 01/29/24 19:08 U Epithel Cells (Auto) >30 /lpf (0-5) H 01/29/24 19:08 Urine Bacteria (Auto) 4+ (Negative) H 01/29/24 19:08 01/29/24 19:08 Urine Culture - Preliminary Urine,Clean Catch Gram negative bacilli Gram negative bacilli#2 Electrocardiogram Date: 03/04/24 Findings: + AFIB @ (a flutter 127) Echocardiogram Date: 01/30/24 EF: 20-25% LV Function: dysfunctional (severe hypokinesis left ventricle) Valvular Disease: + no significant valvular disease
[2024-01-31 06:06] LABS: Hematocrit (blood only) 40.7 % (37.0-47.0); Hemoglobin 13.7 g/dl (12.0-16.0); Mean Corpuscular Hgb Conc 33.7 g/dL (32.0-36.0); Mean Corpuscular Volume 83.1 fL (80.0-100.0); Mean Platelet Volume 9.9 fL (9.4-12.4); Platelet Count 305 K/uL (130-400); RDW Coefficient of Variation 15.2 % (11.5-14.5); RDW Standard Deviation 45.9 fL (36.4-46.3); White Blood Count 7.64 K/ul (4.8-10.8)
[2024-01-31 06:21] LABS: Calcium 8.8 mg/dl (8.6-10.3); Creatinine Clr Calc Pharmacy 60.2 ml/min; Est GFR (African American) 71.7 ml/min; Est GFR (Non-African American) 61.9 ml/min; Magnesium 2.1 mg/dl (1.7-2.4)
[2024-01-31 06:29] LABS: ANTI-Xa, UFH(UnfractionatedHep 0.24 IU/ml (0.3-0.7)
--- NOTE | 2024-01-31 07:55 | Cardioversion ---
Date of Service January 31, 2024 Electrical Cardioversion Rpt Electrical Cardioversion Report Procedure and risks of HODAN guided synchronized electrical cardioversion expalined in detail to the patient, informed consent obtained. Formal TIMEOUT performed. Patient sedated via anesthesia consult with continous O2, BP, HR, endtidal CO2 monitoring. Transesophageal echo performed without difficulty. No contraindications to cardioversion present. Synchronized cardioversion performed using 150J biphasic shock with successful conversion to sinus rhythm. Patient aroused having tolerated well.
[2024-01-31] MEDS: BENZOCAINE/TETRACAIN/BUTAM 50 APPLN/5 GM CAN EXT ONE (09:40)
[2024-01-31] MEDS: PROPOFOL IV EMULSION 10 MG/ML 20 ML VIAL IV ONE (09:40)
[2024-01-31] MEDS: LIDOCAINE 2% 2 ML VIAL/AMP(20MG/ML) INFIL ONE ×2 (09:40)
[2024-01-31] MEDS: MIDAZOLAM HCL 1 MG/ML 2ML VIAL ONE (09:41)
--- NOTE | 2024-01-31 10:07 | Anesthesiology Progress Note ---
Date of Service January 31, 2024 Anesthesia Post Procedure Vital Signs Vital Signs: Temp Pulse Pulse Pulse Resp BP BP 01/31/24 09:00 36.6 C 72 16 112/77 01/31/24 08:36 36.4 C L 78 16 115/80 01/31/24 08:15 80 16 103/71 01/31/24 08:00 75 16 100/72 01/31/24 07:12 36.6 C 109 H 20 104/79 01/31/24 07:08 128 H 16 120/85 01/31/24 03:36 36.9 C 106 H 18 93/71 L 01/30/24 22:15 36.4 C L 111 H 17 01/30/24 22:01 96 H 01/30/24 19:21 36.5 C 104 H 16 105/76 01/30/24 15:05 36.8 C 92 H 20 01/30/24 11:00 36.5 C 88 18 BP Pulse Ox O2 Del Method 01/31/24 09:00 94 Room Air 01/31/24 08:36 93 Room Air 01/31/24 08:15 98 Room Air 01/31/24 08:00 98 Room Air 01/31/24 07:12 95 Room Air 01/31/24 07:08 94 01/31/24 03:36 95 Room Air 01/30/24 22:15 120/82 93 Room Air 01/30/24 22:01 01/30/24 19:21 94 Room Air 01/30/24 15:05 121/74 98 Room Air 01/30/24 11:00 135/64 96 Room Air Transfer of Care Handoff Completed per policy Notes Mental Status: alert / awake / arousable and participated in evaluation Patient Amnestic to Procedure: Yes Nausea / Vomiting: adequately controlled Pain: adequately controlled Airway Patency, RR, SpO2: stable & adequate BP & HR: stable & adequate Hydration State: stable & adequate Anesthetic Complications: no major complications apparent
--- NOTE | 2024-01-31 11:32 | Electrocardiogram Report ---
Test Reason : Blood Pressure : / mmHG Vent. 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
[2024-01-31] MEDS: APIXABAN 5 MG TABLET PO SCH (11:59)
--- NOTE | 2024-01-31 15:25 | Cardiology Progress Note ---
Date of Service January 31, 2024 Assessment & Plan (1) Atrial flutter with rapid ventricular response: (2) Heart failure with reduced ejection fraction: Plan Patient admitted with symptoms of SOB, diaphoresis, near syncope after walking up an incline. Diagnosed with atrial flutter RVR. Duration unknown, but possibly months as patient admits to worsening SOB for 5-6 months. LVEF found to be reduced at 20-25% with severe global hypokinesis, likely tachyinduced. HS troponin negative on admission. Started on IV heparin and IV amiodarone on admission. Add metoprolol succinate 25 mg daily. As BP allows, likely resume lisinopril, possibly lower dose. Currently patient appears euvolemic. No indication for diuretic therapy. Chest CTA was without evidence of PE. Lungs clear. Patient originally to fly back to [place] tomorrow. Recommend delaying flight at this time. Plan for probable HODAN/CV tomorrow Will need anticoagulation upon discharge as well. Patient will need close follow up upon returning to [place] and will likely need transitioned to GDMT that will be available to her. Case discussed with Dr. Raymundo Miller spent a total of 60 minutes on the date of service in preparation, delivery, and documentation of the care provided to this patient, excluding any time spent in the performance of separately billed services. Lima Marshall PA-C Department of Cardiology, [facility] This chart was completed in part utilizing Speech Voice Recognition Software. Grammatical errors, random word insertions, pronoun errors, and incomplete sentences are an occasional consequence of this system due to software limitations, ambient noise, and hardware issues. Any formal questions or concerns about the content, text, or information contained within the body of this dictation should be directly addressed to the provider for clarification. 01/31/2024 68-year-old female presented with exertional tachypalpitations with new findings of atrial fibrillation/flutter with rapid ventricular response Echocardiogram detected prior on discern diffuse cardiomyopathy EF 20-25% Patient begun on therapies with IV now oral amiodarone and anticoagulated Patient underwent synchronized electrical cardioversion this morning with successful conversion to sinus rhythm uneventfully Plan: Transition IV heparin to Eliquis Continue oral amiodarone at 200 mg twice per day, discontinue IV infusion Continue metoprolol succinate 25 mg p.o. daily EKG in a.m. Patient will require further and close clinical follow-up for cardiomyopathy and arrhythmias. Wishes to return to [place] soon as possible. Will attempt to expedite, obtain current records and imaging to be transported with patient To be reassessed in a.m. Admission and Anticipated Discharge Date Admission Date: January 29, 2024 Subjective Patient seen and examined both prior to synchronized electrical cardioversion and later same day No acute cardiac complaints. Currently maintaining sinus after undergoing synchronized electrical cardioversion earlier this morning uneventfully. No chest pains or shortness of breath no edema no jugular venous distention Review of Systems Review of Systems: All systems reviewed & are unremarkable except as noted in Subjective Physical Exam Constitutional: WD/WN, vitals as above well developed; no acute distress Eyes: PERRL, conjunctivae normal, anicteric sclerae ENMT: external ear and nose normal, oropharynx normal Neck: trachea midline, no thyromegaly Respiratory: normal respiratory effort; no labored breathing Auscultation: lungs clear to auscultation bilaterally; no crackles, no rales and no rhonchi Cardiovascular: Rate/Rhythm: + tachycardic Heart Sounds: no murmur Vessels: no JVD Extremities: no edema Gastrointestinal (Abdomen): normal bowel sounds, soft, nontender, no hepatosplenomegaly Musculoskeletal: no cyanosis or clubbing, extremities motor strength 5/5 Neurologic: PERRL, EOMI, accommodation nl, no face palsy, no dysarthria Results & Data Vital Signs (Past 12 Hours) Vital Signs Temp Pulse Pulse Pulse Resp BP BP 01/31/24 15:09 71 01/31/24 10:18 36.6 C 73 16 111/77 01/31/24 09:00 36.6 C 72 16 112/77 01/31/24 08:40 76 01/31/24 08:36 36.4 C L 78 16 115/80 01/31/24 08:15 80 16 103/71 01/31/24 08:00 75 16 100/72 01/31/24 07:12 36.6 C 109 H 20 104/79 01/31/24 07:08 128 H 16 120/85 01/31/24 03:36 36.9 C 106 H 18 93/71 L Pulse Ox O2 Del Method 01/31/24 15:09 01/31/24 10:18 94 Room Air 03/05/24 09:00 94 Room Air 01/31/24 08:40 01/31/24 08:36 93 Room Air 01/31/24 08:15 98 Room Air 01/31/24 08:00 98 Room Air 01/31/24 07:12 95 Room Air 01/31/24 07:08 94 01/31/24 03:36 95 Room Air Laboratory Results Laboratory Results - last 24 hr 01/31/24 05:23 WBC 7.64 RBC 4.90 Hgb 13.7 Hct 40.7 MCV 83.1 MCH 28.0 MCHC 33.7 RDW Std Deviation 45.9 RDW Coeff of Roman 15.2 H Plt Count 305 MPV 9.9 Heparin Anti-Xa, Unfract 0.24 L Sodium 138 Potassium 4.0 Chloride 107 Carbon Dioxide 22 Anion Gap 9 BUN 15 Creatinine 0.94 Est Cr Clr Drug Dosing 60.2 Est GFR ( Amer) 71.7 Est GFR (Non-Af Amer) 61.9 BUN/Creatinine Ratio 16.0 Glucose 85 Calcium 8.8 Magnesium 2.1
--- NOTE | 2024-01-31 17:42 | Hospitalist Progress Note ---
Date of Service January 31, 2024 Assessment & Plan (1) Near syncope: (2) Atrial flutter with rapid ventricular response: (3) Heart failure with reduced ejection fraction: Plan: Patient is a 68-year-old female visiting from [place] with past medical history of hypertension who presents after near syncopal episode and was found to have new onset A-fib with RVR. EKG on admission personally reviewed; a flutter with variable AV block No leukocytosis BNP elevated to 410 CTA chest on admission personally reviewed; no PE. Moderate hiatal hernia Echocardiogram shows reduced EF of 20 to 25% Status post HODAN with cardioversion on January 31, 2024 Switched over to oral amiodarone and Eliquis also started on metoprolol succinate 25 mg Continue telemonitoring overnight; possible discharge in a.m. (4) HTN (hypertension): Plan: Hold lisinopril for now while BP lower end of normal Possible UTI Urinalysis suggestive for infection Urine culture growing E. coli Continue on ceftriaxone; plan to treat for 5 Subclinical hypothyroidism TSH mildly elevated, free T4 within normal limits Follow-up as DVT Ppx: Eliquis Code status: FULL PCP: Visiting from [place] Dispo: Admitted to PCU Discussed with patient's daughter at bedside. Answered questions/queries Time spent evaluating patient, direct bedside care, chart review, placing orders, interpretation of diagnostic studies, discussion with consultants, patient, and family members, as well as other required patient management activities is 50 minutes Please note the above document was generated using voice recognition software. It may contain grammatical, syntax or spelling errors. Any formal questions or concerns about the content, text or information contained within the body of this dictation should be directly addressed to the provider for clarification Admission and Anticipated Discharge Date Admission Date: January 29, 2024 Subjective Patient underwent HODAN with cardioversion. Currently in sinus rhythm. Comfortable; not in distress Review of Systems Review of Systems: All systems reviewed & are unremarkable except as noted in Subjective Physical Exam Physical Exam: Constitutional: Comfortable; not in distress. Respiratory: normal respiratory effort, lungs clear to auscultation, no wheeze, rales, rhonchi. Normal insp/exp effort, no accessory muscle use Cardiovascular: Irregular, no murmur, no edema Vessels: no JVD or carotid bruit Chest: normal inspection of chest Abdomen: normal bowel sounds, soft, nontender, no hepatosplenomegaly Musculoskeletal: no cyanosis or clubbing, extremities motor strength 5/5 Skin: no rashes, warm and dry normal turgor Neurologic: PERRL, EOMI, accommodation nl, no face palsy, no dysarthria CN's II- XI intact bilaterally and moves all extremities Psychiatric: A+Ox3, euthymic affect Results & Data Results & Data Vital Signs (Past 12 Hours) Vital Signs Temp Pulse Pulse Pulse Resp BP BP 01/31/24 15:56 36.8 C 75 18 119/61 01/31/24 15:09 71 01/31/24 10:18 36.6 C 73 16 111/77 01/31/24 09:00 36.6 C 72 16 112/77 01/31/24 08:40 76 01/31/24 08:36 36.4 C L 78 16 115/80 01/31/24 08:15 80 16 103/71 01/31/24 08:00 75 16 100/72 01/31/24 07:12 36.6 C 109 H 20 104/79 01/31/24 07:08 128 H 16 120/85 Pulse Ox O2 Del Method 01/31/24 15:56 95 Room Air 01/31/24 15:09 01/31/24 10:18 94 Room Air 01/31/24 09:00 94 Room Air 01/31/24 08:40 01/31/24 08:36 93 Room Air 01/31/24 08:15 98 Room Air 01/31/24 08:00 98 Room Air 01/31/24 07:12 95 Room Air 01/31/24 07:08 94 (4) HTN (hypertension) Hypertension type: primary hypertension Qualified Code(s): I10 - Essential (primary) hypertension
[2024-01-31] MEDS: AMIODARONE 200 MG TAB PO SCH (19:09)
[2024-01-31] MEDS: fentaNYL citrate PF 100 MCG/2 ML VIAL ONE (19:11)
[2024-02-01 06:37] LABS: BUN Creatinine Ratio 14.6 (10-20); Calcium 8.8 mg/dl (8.6-10.3); Est GFR (African American) 84.6 ml/min
[2024-02-01 06:42] LABS: Basophils # (auto) 0.07 K/uL (0.00-0.20); Basophils % (auto) 0.7 %; Eosinophils # (auto) 0.09 K/uL (0.00-0.50); Eosinophils % (auto) 0.9 %; Hematocrit (blood only) 38.1 % (37.0-47.0); Hemoglobin 12.9 g/dl (12.0-16.0); Immature Granulocytes # (auto) 0.02 K/uL (0.01-0.20); Immature Granulocytes % (auto) 0.2 %; Lymphocytes % (auto) 23.3 %; Mean Corpuscular Hemoglobin 28.1 pg (25.0-34.0); Mean Corpuscular Hgb Conc 33.9 g/dL (32.0-36.0); Monocytes # (auto) 0.81 K/uL (0.11-0.59); Monocytes % (auto) 8.2 %; Neutrophils # (auto) 6.57 K/uL (1.40-6.50); Neutrophils % (auto) 66.7 %; Platelet Count 283 K/uL (130-400); RDW Coefficient of Variation 15.2 % (11.5-14.5); RDW Standard Deviation 45.7 fL (36.4-46.3); Red Blood Count 4.59 M/uL (4.20-5.40); White Blood Count 9.86 K/ul (4.8-10.8)
--- NOTE | 2024-02-01 08:41 | Cardiology Progress Note ---
Date of Service February 01, 2024 Assessment & Plan Admission and Anticipated Discharge Date Admission Date: January 29, 2024 Supervising Physician Co-Signing Physician Notes Attending Staff: 68-year-old woman presenting with new-onset atrial flutter and newly recognized cardiomyopathy (etiology unknown), LVEF 20-25% Pt is s/p HODAN cardioversion Currently in NSR On Amiodarone- oral load - 200 mg po BID for 5 gm total - then 200 mg po per day Would continue Apixiban 5 mg po BID On Toprol XL Marginal systemic BP Pt had previously been Lisinopril Plans to restart as an outpt - BP 98/60 Would restart Lisinopril 2.5 mg po per day K+ goal 4.5-5 Mag goal >2 Troponin WNL BNP slightly elevated - patient appears close to euvolemia Pt anxious to return to [place] Plans to return to [place] on 02/03/2024 As an outpt: * Consider adding aldactone 25 mg po per day * Consider adding Jardiance 10 mg po per day * Consider Cardiac CTA to evaluate coronaries * Sleep Study to evaluate for HALEY Zach Kumar Subjective Events overnight: * No events reported * In NSR Subjective: * No complaints Review of Systems Review of Systems: All systems reviewed & are unremarkable except as noted in HPI & below Physical Exam Physical Exam: Obese JVP 14 cm H20 S1S2 2/6 soft systolic murmur CTA B No LE edema Warm and well perfused Results & Data Vital Signs (Past 12 Hours) Vital Signs Temp Pulse Pulse Resp BP BP Pulse Ox 02/01/24 07:45 72 02/01/24 07:15 36.9 C 80 19 98/60 L 96 02/01/24 04:00 36.8 C 81 14 120/80 92 02/01/24 03:30 71 01/31/24 22:36 36.8 C 84 14 101/69 94 O2 Del Method 02/01/24 07:45 02/01/24 07:15 Room Air 02/01/24 04:00 Room Air 02/01/24 03:30 01/31/24 22:36 Room Air Laboratory Results CBC 02/01/24 Range/Units 05:31 WBC 9.86 (4.8-10.8) K/ul RBC 4.59 (4.20-5.40) M/uL Hgb 12.9 (12.0-16.0) g/dl Hct 38.1 (37.0-47.0) % Plt Count 283 (130-400) K/uL Neut # (Auto) 6.57 H (1.40-6.50) K/uL Lymph # (Auto) 2.30 (1.20-3.40) K/uL [place] # (Auto) 0.81 H (0.11-0.59) K/uL Eos # (Auto) 0.09 (0.00-0.50) K/uL Baso # (Auto) 0.07 (0.00-0.20) K/uL Comprehensive Metabolic Panel 02/01/24 Range/Units 05:31 Sodium 137 (136-145) mmol/L Potassium 4.0 (3.5-5.1) mmol/L Chloride 107 (98-107) mmol/L Carbon Dioxide 23 (21-32) mmol/L BUN 12 (6-23) mg/dl Creatinine 0.82 (0.6-1.2) mg/dl Glucose 76 (70-99(Fasting)) mg/dl Calcium 8.8 (8.6-10.3) mg/dl Intake and Output 01/31/24 02/01/24 02/01/24 22:59 06:59 14:59 Intake Total 240 / 636.783 50 / 636.783 Balance 240 / 636.783 50 / 636.783 Intake: IV 50 / 396.783 cefTRIAXone SODIUM 2,000 mg In 50 / 50 Dextrose 5 % Mini-B 50 ml @ 100 mls/hr IV Q24H [facility] Rx#: [id number] Oral 240 / 240 0 / 240 Other: # Unmeasured Voids 1 1 Medications Administered Current Inpatient Medications Acetaminophen (Acetaminophen 325 Mg Tab) 650 mg PO Q4H PRN PRN Reason: Pain or Fever Stop: 02/28/24 20:38 Amiodarone HCl (Amiodarone 200 Mg Tab) 200 mg PO BID17 [facility] Stop: 03/01/24 16:59 Last Admin: 01/31/24 19:09 Dose: 200 mg Apixaban (Apixaban 5 Mg Tablet) 5 mg PO BID [facility] Stop: 03/01/24 11:29 Last Admin: 01/31/24 20:31 Dose: 5 mg Ceftriaxone Sodium 2,000 mg/ (Dextrose) 50 mls @ 100 mls/hr IV Q24H [facility]; Protocol Stop: 02/09/24 05:59 Last Infusion: 02/01/24 06:17 Dose: Infused Metoprolol Succinate (Metoprolol Succ 25mg Ext Rel Tab) 25 mg PO QAM [facility] Stop: 02/29/24 11:14 Last Admin: 01/31/24 08:41 Dose: 25 mg Ondansetron HCl (Ondansetron Inj 2 Mg/Ml 2 Ml Vial) 4 mg IV Q6H PRN PRN Reason: Nausea Stop: 02/28/24 20:38 Polyethylene Glycol (Polyethylene (Miralax) 17 Gm Pack) 17 gm PO DAILY PRN PRN Reason: Constipation Stop: 02/28/24 20:38
--- NOTE | 2024-02-01 12:59 | Discharge Summary ---
Date of Service February 01, 2024 Admission HPI Per Admitting Provider This is a 68-year-old female visiting from [place] with past medical history of hypertension who presents after near syncopal episode earlier this afternoon. Patient is here visiting her grandson during his [employer] graduation. They were walking to lunch when she started to feel lightheaded with associated shortness of breath and diaphoresis but was able to sit down at the farfan without passing out. Family called EMS and was found to be hypotensive with systolic BP in the 90s with heart rate in the 130s. EKG on arrival consistent with atrial flutter with RVR in the 130s. Received 150mg IV bolus of amiodarone x2 in the ED and has been on an amiodarone drip of 1 mg/min for the past hour with heart rate remaining in the 130s. Currently feels fatigued but denies any lightheadedness, headache, chest pain or palpitations. No nausea, vomiting, abdominal pain, dysuria, diarrhea or constipation. Denies any history of known heart arrhythmias, CO or PE. Admission Exam Per Admitting Provider General Appearance: WD/WN, vitals as above, NAD, sitting up in bed, pleasant, conversing easily Head: normocephalic, atraumatic Eyes: normal inspection, PERRL, conjunctivae normal, anicteric sclerae ENT: external ear and nose normal, oropharynx normal Neck: normal visual inspection, trachea midline, no thyromegaly Respiratory: normal respiratory effort, diminished breath sounds bilaterally, no wheeze, rales, rhonchi. No accessory muscle use Cardiovascular: tachycardic rate regular rhythm, no murmur, normal peripheral pulses, no BLE edema. Vessels: no JVD Chest: normal inspection of chest Abdomen/GI: normal bowel sounds, soft, nontender, no hepatosplenomegaly Extremities/Musculoskeletal: no cyanosis or clubbing, extremities motor strength 5/5 Neurologic: PERRL, EOMI, accommodation nl, no face palsy, no dysarthria, CN's II-XI intact bilaterally and moves all extremities Psychiatric: A+Ox3, euthymic affect Skin: no rashes, normal color, warm/dry Principal Diagnosis Near syncope A flutter with rapid ventricular response Heart failure with reduced ejection fraction Discharge Exam Constitutional: Comfortable; not in distress. Respiratory: normal respiratory effort, lungs clear to auscultation, no wheeze, rales, rhonchi. Normal insp/exp effort, no accessory muscle use Cardiovascular: Irregular, no murmur, no edema Vessels: no JVD or carotid bruit Chest: normal inspection of chest Abdomen: normal bowel sounds, soft, nontender, no hepatosplenomegaly Musculoskeletal: no cyanosis or clubbing, extremities motor strength 5/5 Skin: no rashes, warm and dry normal turgor Neurologic: PERRL, EOMI, accommodation nl, no face palsy, no dysarthria CN's II- XI intact bilaterally and moves all extremities Psychiatric: A+Ox3, euthymic affect Discharge Data Allergies Allergy/AdvReac Type Severity Reaction Status Date / Time No Known Allergies Allergy Unverified 01/29/24 18:05 Consultations 01/29/24 18:09 ED Decision to Admit Stat 01/29/24 20:39 Consult Cardiology Routine 01/30/24 15:06 Consult Anesthesiology Routine 01/30/24 15:09 Consult Anesthesiology Routine Procedures Performed Operation Date: 01/31/24 07:30 Actual Procedures p Echo Transesophageal - Bayron Fosneca MD s Echo Color Flow - Bayron Fonseca MD s Cardioversion - Bayron Fonseca MD s Echo Doppler Complete - Bayron Fonseca MD Ordered Studies 01/29/24 21:44 CT angio chest PE protocol Stat Hospital Course (1) Near syncope: (2) Atrial flutter with rapid ventricular response: (3) Heart failure with reduced ejection fraction: Per prior attending with addendum: Patient is a 68-year-old female visiting from [place] with past medical history of hypertension who presents after near syncopal episode and was found to have new onset A-fib with RVR. EKG on admission personally reviewed; a flutter with variable AV block No leukocytosis BNP elevated to 410 CTA chest on admission personally reviewed; no PE. Moderate hiatal hernia Echocardiogram shows reduced EF of 20 to 25% Status post HODAN with cardioversion on January 31, 2024 Switched over to oral amiodarone and Eliquis also started on metoprolol succinate 25 mg Continue telemonitoring overnight; possible discharge in a.m. (4) HTN (hypertension): Hold lisinopril for now while BP lower end of normal Possible UTI Urinalysis suggestive for infection Urine culture growing E. coli Continue on ceftriaxone; plan to treat for 5 Subclinical hypothyroidism TSH mildly elevated, free T4 within normal limits Follow-up as DVT Ppx: Eliquis Code status: FULL PCP: Visiting from [place] Dispo: Admitted to PCU Discussed with patient's daughter at bedside. Answered questions/queries Time spent evaluating patient, direct bedside care, chart review, placing orders, interpretation of diagnostic studies, discussion with consultants, patient, and family members, as well as other required patient management activities is 50 minutes Please note the above document was generated using voice recognition software. It may contain grammatical, syntax or spelling errors. Any formal questions or concerns about the content, text or information contained within the body of this dictation should be directly addressed to the provider for clarification Plan Addendum 02/01/2024: Patient was seen and examined at bedside as a follow-up of atrial flutter with RVR and heart failure with reduced ejection fraction. Patient's home lisinopril is on hold due to blood pressure being borderline. Patient has been started on amiodarone, Eliquis, metoprolol. Patient is also on antibiotic for UTI which she will complete the course with oral antibiotic on discharge. Patient reports feeling well, is hemodynamically stable/euvolemic and would like to go home as she has a flight day after tomorrow. She has been made aware to take copy of all her chart/lab/imaging so that it helps with follow-up with her PCP and cardiology in her [place]. She is being discharged with following instruction at the point of discharge: Follow-up with your primary care physician within a week time and likely you will need labs CBC/CMP/magnesium/phosphorus. Prior to discharge from the hospital, please make sure that you have copies of your chart/lab/imagings while in the hospital so that you can follow-up with your cardiology back [place] your [place]. Also make sure that you have Eliquis free coupon for 1 month, GoodRx card for your different medications. You were diagnosed with atrial flutter with rapid ventricular response and heart failure with reduced ejection fraction leading to near syncope. Cardiology evaluated you. You were started on Eliquis, amiodarone, metoprolol. Take your blood pressure measurement twice a day, maintain a log, if blood pressure is consistently over 120/80, you can restart your lisinopril at 2.5 mg daily. Your cardiac medications needs to be further optimized, it is very important that you follow-up with your cardiology in 1 to 2 weeks time upon discharge at her [place] country. Further recommendation can be following but you will need to further discuss with your primary care physician/cardiology during your visit with them in a week time upon discharge: * Consider adding aldactone 25 mg po per day * Consider adding Jardiance 10 mg po per day * Consider Cardiac CTA to evaluate coronaries * Sleep Study to evaluate for HALEY For your UTI, complete the course of antibiotic as prescribed. You will need repeat thyroid function test in about 6 weeks time, coordinate with your primary care office to set up the test. Take your medications as prescribed. Please make sure that you are able to get your medications today by calling your pharmacy before you leave the hospital so that your treatment continuity is not broken. Home Health Attestation I certify that this patient is under my care and that I, or a physicians behavioral health assistant working with me, had a face to-face encounter that meets the home health [id number] encounter requirements with this patient. The encounter with the patient was in whole, or in part, for the following medical condition, which is the primary reason for home health care (list medical condition): I certify that, based on my findings, the following services are medically necessary home health services: My clinical findings support the need for the above services because: Further, I certify that my clinical findings support that this patient is homebound (i.e. absences from home require considerable and taxing effort and are for medical reasons or bahai services or infrequently or of short duration when for other reasons) because: Certification for Home Health Services: Based on the above findings, I certify that this patient is confined to the home and needs intermittent [facility] care, physical therapy and/or speech therapy or continues to need occupational therapy. The patient is under my care, and I have initiated the establishment of the plan of care. This patient will be followed by a physician who will periodically review the plan of care. Total Time Total Time Spent Total Time Spent (In Minutes): 45 Discharge Plan Discharge Items Patient Disposition: Home - Self-Care Reason For Visit: NEAR YNCOPE, A FLUTTER WITH RVR Discharge Diagnosis: Near syncope A flutter with rapid ventricular response Heart failure with reduced ejection fraction Activity: Resume your previous activity Non-emergency contact: Primary Care Provider Call non-emergency contact if: you have any medication questions, your symptoms worsen, your pain is not controlled and your temperature is above 101.5 Follow-up/Referrals: PCP,NO [Primary Care Provider] - Diet: Heart Healthy and Low Sodium (2gm) Addtl Attending Provider Instructions: Follow-up with your primary care physician within a week time and likely you will need labs CBC/CMP/magnesium/phosphorus. Prior to discharge from the hospital, please make sure that you have copies of your chart/lab/imagings while in the hospital so that you can follow-up with your cardiology back [place] your country. Also make sure that you have Eliquis free coupon for 1 month, [employer] card for your different medications. You were diagnosed with atrial flutter with rapid ventricular response and heart failure with reduced ejection fraction leading to near syncope. Cardiology evaluated you. You were started on Eliquis, amiodarone, metoprolol. Take your blood pressure measurement twice a day, maintain a log, if blood pressure is consistently over 120/80, you can restart your lisinopril at 2.5 mg daily. Your cardiac medications needs to be further optimized, it is very important that you follow-up with your cardiology in 1 to 2 weeks time upon discharge at her home country. Further recommendation can be following but you will need to further discuss with your primary care physician/cardiology during your visit with them in a week time upon discharge: * Consider adding aldactone 25 mg po per day * Consider adding Jardiance 10 mg po per day * Consider Cardiac CTA to evaluate coronaries * Sleep Study to evaluate for HALEY For your UTI, complete the course of antibiotic as prescribed. You will need repeat thyroid function test in about 6 weeks time, coordinate with your primary care office to set up the test. Take your medications as prescribed. Please make sure that you are able to get your medications today by calling your pharmacy before you leave the hospital so that your treatment continuity is not broken. Addtl Surgical Garment Fitter Provider Instructions: Call 911 and go to the Emergency Room if: * You have tightness or pain in your chest that does not go away with rest or Nitroglycerin * You are very short of breath even with rest Call your doctor if any of the following symptoms or problems start or get worse: * Shortness of breath or difficulty breathing * Wake up at night short of breath * Chest pain * Cough * Swelling of your hands, fee, or legs * More fatigued or tired with your normal activity * Palpitations - sudden fast heart beats WEIGHT * Weigh yourself every morning after using the bathroom. * Use the same scale. * Wear the same amount of clothing. * Write your weight down on your chart. * Call your doctor if you gain more than 2-3 pounds in 1-2 days. MEDICATIONS * Use this discharge instruction sheet for instructions. * Take your medications at the time your doctor ordered. * Do not skip a dose of your medicines. * If you miss a dose of medicine, take as soon as possible, but DO NOT DOUBLE A DOSE. * Read your medicine information when you get home. * Know all of the side effects of your medicine. * Call your doctor's office if you have any side effects. * Be sure all of your doctors know what medicine and herbs you take (including cold, flu, and herbal medicine). * Pain Medicine: If you do not get relief from your pain, please call your doctor for help. Take the following with you to your follow-up doctor appointments: * Weight Chart * Medication List * List of questions Do not drink excessive alcohol, beer or wine. Pending Studies at Discharge: No Stand-Alone Forms: [facility] [employer], Smoking Cessation Medications and DC Order Prescriptions: New Eliquis 5 mg Tablet 5 mg PO BID Qty: 60 0RF amiodarone 200 mg Tablet 200 mg PO UD Qty: 41 0RF Rx Instructions: 200 mg twice a day x 11 days, then 200 mg daily. metoprolol succinate 25 mg Tablet Extended Release 24 Hr 25 mg PO QAM Qty: 30 0RF cefdinir 300 mg capsule 300 mg PO BID 3 Days Qty: 6 0RF Held lisinopril 1 tab PO QAM Hold Instructions: Resume on 02/06/24. Resume at 2.5 mg daily when BP is consistently over 120/80 mmHg. Discuss with your PCP in a week time. Rx Instructions: PT DOESNT KNOW STRENGTH..GETS MEDICATION IN [place] Discharge Orders: Discharge Order (Routine); Ordered 02/01/24 Ordered By: Kong Watson Admission Data Admit Date/Time: 01/29/24 18:12 Attending Provider: Kong Watson Admit Provider: Irene Bryson Primary Care Provider: PCP,NO Other Providers: Irene Bryson; Óscar Kimble; Harini Crane; Maylin Barnard; Tamara Christina; Guera Veronica; Yefri Kumar; Lane Ibarra; Tejinder Curry; Chuckie Waldrop; Nanda Waldrop; Eddie Cleveland; Torie Ramirez; Julián Martinez; Kaiser Cervantes; Jay Lang; Yin Meza; Skyler Watters; Debbie Watters; Fran Askew; Clotilde Cano; Jack Funez; Lima West; Xenia Ba; Rik Burgos; Virginia Murphy; Leyla Hodge; Trina Otero; Charity Allison; Jethro Allison V; Gamaliel Florian; Maylin Cerna; Sinan Ryan; Krystina Lopez; Jethro Bingham; Kailash Meza; Obinna Polo; Nidia Moctezuma; Stephanie Davison; Jethro Sue; Akira Kiser.; Maria Dolores Ledbetter; Seferino Hawkins; Key Knight; Maritza Gomez; Jasbir Gallego; Charles Lang; Lesvia Hammond; Zohra Barajas; Kenan Edmondson; Benjamin Bond; Yefri Florence Jr; Haylie Gutierrez; Elizabeth Maxwell ACarlos; Filomena Morgan; Rik Devine; Chuckie Mcelroy; Nadine Patton SCarlos; Elizabeth Forbes A.; Farooq Land; Patrick Bell; Pk Aguilar; Dg Newman; Eladio Ulrich; Milan Pelaez; Erin Vital; Dana Scales
== END 2024-02-01 14:26 | disposition home or self-care (01) | DRG 312 ==
LOC: EDBD → ED 16:23 → SUATTDRO 18:12 → 4W 18:12